=== PATIENT | male | born 1960 | race American Indian/Alaskan Native ===

== ENCOUNTER 2019-01-06 11:52 | Observation (INO) | payer OTHER ==
[~2019-01-06] VITALS: Ht 167.6 cm; Wt 96.2 kg
[2019-01-06] MEDS ORDERED: FAMOTIDINE 20 MG/2 ML VIAL IV ONE (12:00)
[2019-01-06] MEDS ORDERED: PROMETHAZINE 12.5MG/ NACL 0.9% 12.5 MG/50 ML BAG IV PRN (12:00)
[2019-01-06] MEDS ORDERED: NITROGLYCERIN 2% OINT 1 GM PKT TOP ONE (12:00)
[2019-01-06] MEDS ORDERED: ACETAMINOPHEN 325 MG TAB PO ONE (12:00)
[2019-01-06 12:27] LABS: BASOPHILS # (AUTO) 0.1 (0.0-0.1); BASOPHILS % 0.2 % (0.0-1.0); EOSINOPHILS % 0.1 % (0.0-6.0); HEMATOCRIT 39.7 % (38.2-49.6); HEMOGLOBIN 12.8 g/dL (14.0-18.0); LYMPHOCYTES # (AUTO) 1.3 (1.0-3.2); LYMPHOCYTES % 6.2 % (18.0-39.1); MEAN CORPUSCULAR HEMOGLOBIN 23.5 pg (28-32); MEAN CORPUSCULAR HGB CONC 32.2 g/dL (31-35); MONOCYTES # (AUTO) 1.6 (0.2-0.8); MONOCYTES % 8.1 % (4.4-11.3); NEUTROPHILS % 84.8 % (38.7-80.0); PLATELET COUNT 282 x10e3/uL (140-360); RED BLOOD COUNT 5.44 x10e6/uL (4.3-5.7); RED CELL DISTRIBUTION WIDTH 14.6 % (11.7-14.4)
--- NOTE | 2019-01-06 12:29 | Diagnostic Imaging Report ---
EXAMINATION: CHEST SINGLE (PORTABLE) INDICATION: Chest pain, shortness of breath COMPARISON: None FINDINGS: TUBES and LINES: EKG leads overlie the chest. LUNGS: The lung volumes are low. There is perihilar fullness and indistinctness of the pulmonary vasculature. Mild patchy bibasilar opacities, most likely subsegmental atelectasis. PLEURA: Likely small left pleural effusion. No pneumothorax. HEART AND MEDIASTINUM: The cardiomediastinal silhouette is normal in size and contour. BONES AND SOFT TISSUES: No acute fracture or dislocation. UPPER ABDOMEN: No free air under the diaphragm. IMPRESSION: Low lung volumes and mild pulmonary edema. Likely small left pleural effusion. Patchy bibasilar opacities, most likely subsegmental atelectasis. Signed by: Rohit Bowman MD on 01/06/2019 12:25 PM
[2019-01-06 12:53] LABS: ALANINE AMINOTRANSFERASE 25 IU/L (0-55); ALBUMIN 3.1 g/dL (3.5-5.0); ALBUMIN/GLOBULIN RATIO 0.6 (0.8-2.0); ALKALINE PHOSPHATASE 140 IU/L (40-150); ANION GAP 12.9 mmol/L (8-16); BLOOD UREA NITROGEN 11 mg/dL (7-26); BUN/CREATININE RATIO 14 (6-25); CALCIUM 8.9 mg/dL (8.4-10.2); CARBON DIOXIDE 25 mmol/L (22-29); CHLORIDE 100 mmol/L (98-107); CREATINE KINASE 26 IU/L (30-200); EST GLOMERULAR FILTRATION RATE > 60 ML/MIN (60-); GLUCOSE 111 mg/dL (74-118); LIPASE 9 U/L (8-78); MAGNESIUM 1.8 MG/DL (1.3-2.1); POTASSIUM 3.9 mmol/L (3.5-5.1); SODIUM 134 mmol/L (136-145)
--- NOTE | 2019-01-06 12:55 | NUR ---
BLOOD CULTURE AND LACTIC ACID OBTAINED
[2019-01-06] MEDS ORDERED: ALBUTEROL/IPRATROPIUM 3 ML NEB NEB ONE (13:00)
[2019-01-06] MEDS ORDERED: CEFTRIAXONE SOD 1 GM VIAL IV ONE (13:00)
[2019-01-06] MEDS ORDERED: AZITHROMYCIN 500MG/NS 250 ML 250 ML IV ONE (13:00)
[2019-01-06] MEDS ORDERED: CEFTRIAXONE SOD 2 GM/NS 100 ML 100 ML IV ONE (13:15)
[2019-01-06] MEDS ORDERED: KETOROLAC TROMETHAMINE 30 MG/ML VIAL IV NR (13:15)
--- NOTE | 2019-01-06 13:20 | NUR ---
DR. GILL AT BEDSIDE RE-EVALUATING PATIENT AND UPDATING HIM HIM WILL BE ADMITTED FOR PNEUMONIA RESP. THERAPY AT BEDSIDE ADMIN. BREATHING TX
[2019-01-06] MEDS ORDERED: IBUPROFEN 200 MG TAB PO PRN (13:30)
[2019-01-06] MEDS ORDERED: ONDANSETRON HCL INJ 2MG/ML 2ML 2 MG/ML VIAL IV PRN (13:30)
[2019-01-06] MEDS ORDERED: HYDROCODONE/APAP 7.5MG-325MG 1 EA TAB PO PRN (13:30)
[2019-01-06] MEDS ORDERED: ACETAMINOPHEN 325 MG TAB PO PRN (13:30)
[2019-01-06] MEDS ORDERED: MORPHINE SULFATE INJ 4 MG/ML INJ 1ML IV PRN (13:30)
[2019-01-06] MEDS ORDERED: DIPHENHYDRAMINE HCL INJ 50 MG/ML VIAL IV PRN (13:30)
--- OUTSIDE RECORDS SUMMARY | 2019-01-06 13:46 | XMS REPORT ---
Author Author [facility] Address Unknown Phone Unavailable Care Team Providers Care Aircraft Maintenance Supervisor Name Role Phone Nona GILL Unavailable Unavailable Problems This patient has no known problems. Allergies, Adverse Reactions, Alerts This patient has no known allergies or adverse reactions. Medications This patient has no known medications. Results Test Description Test Time Test Comments Text Results Atomic Results Result Comments CHEST SINGLE (PORTABLE) 2019-01-06 12:24:00 [place] [address] Patient Name: JOSÉ LUIS MENA MR #: [id number] : 1960 Age/Sex: 58/M Req #: [id number] Adm Physician: Ordered by: PATSY GILL MD Report #: [id number] Location: ER Room/Bed: Procedure: [id number] DX/CHEST SINGLE (PORTABLE) Exam Date: 01/06/19 Exam Time: 1200 REPORT STATUS: Signed EXAMINATION: CHEST SINGLE (PORTABLE) INDICA TION: Chest pain, shortness of breath COMPARISON: None FINDINGS: TUBES and LINES: EKG leads overlie the chest. LUNGS: The lung volumes are low. There is perihilar fullness and indistinctness of the pulmonary vasculature. Mild patchy bibasilar opacities, most likely subsegmental atelectasis. PLEURA: Likely small left pleural effusion. No pneumothorax. HEART AND MEDIASTINUM: The cardiomediastinal silhouette is normal in size and contour. BONES AND SOFT TISSUES: No acute fracture or dislocation. UPPER ABDOMEN: No free air under the diaphragm. IMPRESSION: Low lung volumes and mild pulmonary edema. Likely small left pleural effusion. Patchy bibasilar opacities, most likely subsegmental atelectasis. Signed by: Abdullahi Bowman MD on 01/06/2019 12:25 PM Dictated By: ABDULLAHI BOWMAN MD [id number] Transcribed By: NICKOLAS on 01/06/19 1225 COPY TO: PATSY GILL MD
[2019-01-06 15:43] VITALS: BP 118/69
[2019-01-06 16:22] VITALS: BP 118/69
[2019-01-06] MEDS ORDERED: FAMOTIDINE 20 MG/2 ML VIAL IV SCH (17:00)
[2019-01-06] MEDS ORDERED: ENOXAPARIN SOD INJ 40 MG/0.4 ML SYR SC SCH (17:00)
[2019-01-06] MEDS: ALBUTEROL SULF 0.083% NEB SOLN 3 ML NEB NEB SCH (19:15)
[2019-01-06] MEDS: IPRATROPIUM BROMIDE 0.02% 2.5 ML NEB NEB SCH (19:15)
[2019-01-06 19:30] VITALS: BP_SYST 149; BP_SYST 98; BP_DIAS 60; BP_DIAS 69
[2019-01-06 19:44] LABS: CREATINE KINASE 21 IU/L (30-200)
--- NOTE | 2019-01-06 20:16 | History and Physical ---
HISTORY PRESENTING ILLNESS: A 58-year-old male with a history of smoking, complains of shortness of breath, started about a week ago, but this morning when the patient woke up the patient had some chest tightness and shortness of breath. The patient was going to the work and the patient had some pain on inspiration and the patient decided to go to a local clinic, was seen in the local clinic and the patient was sent here for further evaluation, was found to have pneumonia, admitted for the same. PAST MEDICAL HISTORY: No significant history. SOCIAL HISTORY: History of smoker, smokes about a pack a day. No alcohol abuse. No IV drug abuse. ALLERGIES: NO DRUG ALLERGIES NOTED. PAST SURGICAL HISTORY: Noncontributory. REVIEW OF SYSTEMS: Positive for chest pain. Positive for shortness of breath positive. Negative for nausea. No vomiting, or diarrhea. No constipation. No rectal bleeding. No hematochezia. No hematemesis. No blurry vision. No headaches and no diplopia. PHYSICAL EXAMINATION: VITAL SIGNS: Temperature is 98.9, blood pressure is 118/69, pulse oximetry of 94%. HEENT: Normocephalic, atraumatic. Pupils are reactive to light and accommodation. CVS: S1, S2 normal. Regular rate and rhythm. LUNGS: Positive for crackles at lung bases. ABDOMEN: Nontender, nondistended. EXTREMITIES: No clubbing, no cyanosis, no edema. LABORATORY VALUES: [place] count [place] [address], hemoglobin of 12.8, hematocrit of 39.7, neutrophil count of 84.8. Coags are normal. D-dimer 0.40. Chemistry show a sodium of 134, BUN of 11, creatinine 0.80. Albumin was 3.1, globulin 5.1. Lipase was 9. Lactic acid 8.1. IMAGING STUDIES: Chest x-ray showed patchy bibasilar opacities, most likely atelectasis. MICROBIOLOGY: Pending. Blood cultures have been ordered. ASSESSMENT: Pneumonia. PLAN: 1. The patient has been started on Lovenox for DVT prophylaxis. 2. Famotidine for GI prophylaxis. 3. The patient has been started on Rocephin and azithromycin. Albuterol and Atrovent treatment will be continued. The patient will also get a CT scan to evaluate his pneumonia. 4. Further recommendation, per clinical course. We will continue to monitor the patient and oxygen by O2 protocol will be also advocated. Further recommendation, per clinical course and also on the CT scan. MD MARILEE Tapia/MODL /[id number]
[2019-01-06] MEDS ORDERED: CEFTRIAXONE SOD 1 GM/NS 50 ML 50 ML IV SCH (21:00)
[2019-01-06] MEDS ORDERED: ZOLPIDEM TARTRATE 5 MG TAB PO PRN (21:00)
[2019-01-06] MEDS ORDERED: CEFTRIAXONE SOD 1 GM VIAL IV SCH (21:00)
[2019-01-06] MEDS ORDERED: IOPAMIDOL 370 MG/ML 200 ML INFUS..BTL INJ ONE (22:27)
[2019-01-06] MEDS ORDERED: SODIUM CHLORIDE 0.9% 50ML 50 ML ONE (22:27)
--- NOTE | 2019-01-06 22:58 | Diagnostic Imaging Report ---
CT CHEST WITH CONTRAST HISTORY: pneumonia, chest pain COMPARISON: Chest radiograph January 06, 2019 TECHNIQUE: CT scan of the chest WITH intravenous contrast, using standard protocol. Coronal and sagittal reformats are provided. IV CONTRAST: 100 cc of Isovue-370. RADIATION DOSE: Total DLP: 554.25 mGy*cm Dose modulation, iterative reconstruction, and/or weight based adjustment of the mA/kV was utilized to reduce the radiation dose to as low as reasonably achievable. COMPLICATIONS: None FINDINGS: Lines/tubes: None. Lungs and Airways: Bilateral lower lobe and adjacent left upper lobe volume loss with patchy interstitial and airspace opacities, left greater than right. Pleura: No effusion or pneumothorax. Heart and mediastinum: The thyroid gland is normal. The heart and pericardium are within normal limits. Abdomen: Limited evaluation of the upper abdomen. Lymph nodes: No pathologically enlarged lymph node identified. Vessels: Unremarkable. Bones: No acute osseous lesion is identified. Soft tissues: Unremarkable IMPRESSION: Bibasilar interstitial and airspace opacities, left greater than right. Differential considerations include atelectasis, multifocal pneumonia, and/or aspiration in the appropriate settings. Signed by: Dr. Vasyl Lynn D.O., M.M.M. on 01/06/2019 10:55 PM
[2019-01-06 23:41] VITALS: BP 98/60
[2019-01-07 00:39] VITALS: BP 103/64
[2019-01-07 05:30] VITALS: BP 107/68
[2019-01-07 05:35] LABS: BASOPHILS # (AUTO) 0.1 (0.0-0.1); BASOPHILS % 0.4 % (0.0-1.0); EOSINOPHILS # (AUTO) 0.1 (0.0-0.4); EOSINOPHILS % 0.9 % (0.0-6.0); HEMATOCRIT 32.5 % (38.2-49.6); LYMPHOCYTES # (AUTO) 2.5 (1.0-3.2); LYMPHOCYTES % 17.5 % (18.0-39.1); MEAN CORPUSCULAR HEMOGLOBIN 23.3 pg (28-32); MEAN CORPUSCULAR HGB CONC 31.7 g/dL (31-35); MEAN CORPUSCULAR VOLUME 73.4 fL (81-99); MONOCYTES # (AUTO) 1.4 (0.2-0.8); NEUTROPHILS # (AUTO) 9.9 (2.1-6.9); NEUTROPHILS % 70.8 % (38.7-80.0); PLATELET COUNT 228 x10e3/uL (140-360); RED BLOOD COUNT 4.43 x10e6/uL (4.3-5.7); RED CELL DISTRIBUTION WIDTH 14.6 % (11.7-14.4)
[2019-01-07 05:44] LABS: HEMOGLOBIN 10.3 g/dL (14.0-18.0)
[2019-01-07 05:58] LABS: CREATINE KINASE 17 IU/L (30-200)
[2019-01-07 06:23] LABS: ALANINE AMINOTRANSFERASE 17 IU/L (0-55); ALBUMIN 2.4 g/dL (3.5-5.0); ALBUMIN/GLOBULIN RATIO 0.6 (0.8-2.0); ALKALINE PHOSPHATASE 106 IU/L (40-150); ANION GAP 10.7 mmol/L (8-16); BLOOD UREA NITROGEN 14 mg/dL (7-26); BUN/CREATININE RATIO 18 (6-25); CALCIUM 8.4 mg/dL (8.4-10.2); CARBON DIOXIDE 27 mmol/L (22-29); CHLORIDE 103 mmol/L (98-107); EST GLOMERULAR FILTRATION RATE > 60 ML/MIN (60-); GLUCOSE 96 mg/dL (74-118); POTASSIUM 3.7 mmol/L (3.5-5.1); SODIUM 137 mmol/L (136-145)
--- NOTE | 2019-01-07 06:55 | NUR ---
rounded with ceramics engineer nurse, patient aware of change and in no distress. call edouard within reach and bed in lowest position.
--- NOTE | 2019-01-07 07:40 | Progress Note ---
DATE: SUBJECTIVE: This is a 58-year-old gentleman who comes in with chest pain and shortness of breath yesterday. Chest x-ray confirmed consolidation. CT scan was done too, confirmed it again. The patient did show some bilateral patchy infiltrates, questionable. Pain has gone. Fever is better. The patient has no chest pain, no shortness of breath, and currently feeling much better. OBJECTIVE: VITAL SIGNS: Temperature is 98.7, pulse of 92, respirations of 20, blood pressure is 107/68, and pulse oximetry of 95% on room air. HEENT: Normocephalic and atraumatic. Pupils are reactive to light and accommodation. CVS: S1 and S2 normal. LUNGS: Crackles at the lung bases. ABDOMEN: Nontender and nondistended. EXTREMITIES: No clubbing, no cyanosis, no edema. LABORATORY DATA: The patient's white count is down to 14,000, hemoglobin of 10.3, hematocrit of 32.5, platelet count is 228, and neutrophil count is down to 70.8. Coags, D-dimer 0.53. Chemistries today's show a sodium of 137, potassium 3.7, BUN of 14, and creatinine 0.80. Troponins have been trended to be negative. The patient's albumin globulin noted and ratio is low. IMAGING STUDIES: CT scan shows bibasilar interstitial air opacities, left greater than right. Differential consideration and clinical atelectasis and multifocal pneumonia or aspiration in the appropriate setting. ASSESSMENT: Pneumonia. PLAN: Plan is to continue the patient on IV antibiotics, although the patient does not want to stay here and wants to go home, which is agreeable. We have talked in detail about him not working until he was seen by a physician for work release. The patient will be discharged if okay with him on Augmentin 875 mg twice a day, Ventolin q.4 hours, and the patient is to hydrate himself adequately and also do deep breathing exercises. This has been counseled upon and the patient agree and also by bedside, who agrees with the plan. The patient will be seen by a physician before he has to be release back to work. Further recommendation per clinical course. Final diagnosis again is pneumonia, multifocal, probably aspiration versus atelectasis. Discharge medication will be Augmentin and ProAir. MD MARILEE Tapia/ANABEL /[id number]
[2019-01-07] MEDS: IPRATROPIUM BROMIDE 0.02% 2.5 ML NEB NEB SCH (07:49)
[2019-01-07] MEDS: ALBUTEROL SULF 0.083% NEB SOLN 3 ML NEB NEB SCH (07:49)
[2019-01-07] MEDS ORDERED: AUGMENTIN 875-1 EACH PO (07:52)
[2019-01-07] MEDS ORDERED: VENTOLIN HFA18 GM (07:54)
[2019-01-07 08:30] VITALS: BP 120/75
--- NOTE | 2019-01-07 08:30 | NUR ---
patient alert and oriented. discharge instructions given at this time, patient verbalized understanding. IV discontinued at this time, catheter in tact and small dressing applied. patient refused assistance to personal auto for to drive home.
[2019-01-07 08:48] VITALS: BP 120/75
[2019-01-07] MEDS ORDERED: AZITHROMYCIN 500MG/NS 250 ML 250 ML IV SCH (13:00)
== END 2019-01-07 08:48 | disposition home or self-care (01) ==
LOC: ER 11:52 → ERHOLD 13:19 → IMCU 15:04
PROVIDERS: ADMIT Family Medicine; ATTEND Family Medicine
DX: J18.9 Pneumonia, unspecified organism (principal); R07.89 Other chest pain; F17.210 Nicotine dependence, cigarettes, uncomplicated
CPT/HCPCS: 36415 ×2; 71045; 71260; 80053 ×2; 82550 ×2; 82553 ×2; 83605; 83690; 83735; 84484 ×2; 85025 ×2; 85379; 87040; 87071; 87205; 93005; 94640 ×3; 99284; G0378 ×2; J0456; J0696 ×2; J1650; J1885; J2270; J2550; Q9967